=== PATIENT | male | born 1945 | race Caucasian/White ===

== ENCOUNTER → 2017-01-21 | Outpatient (CLI) | payer MEDICARE, BC ==
[~2017-01-21] MED LIST: ALDACTONE25 MG PO; AMARYL; AMARYL2 MG PO; AMOXICILLIN; BP MED; CARAFATE1 G PO; CARVEDILOL25 MG PO; CLOPIDOGREL75 MG PO; COUMADIN PO; COUMADIN5 MG PO; LASIX20 MG PO; LISINOPRIL10 MG PO; LORTAB 7.51 TAB 7.5/ PO; PANTOPRAZOLE SO40 MG PO; PLAVIX PO; POLYTRIM EYE DR10 ML OU; PREDNISONE10 MG; PROMETHAZINE D118 ML; PROTONIX PO; VITAMIN D2000 UNIT PO; ZESTRIL30 MG PO
[2017-01-21 08:55] LABS: BASOPHIL# 0.1 X10e3 (0-0.3); BASOPHIL% 0.8 % (0-2.5); EOSINOPHIL# 0.2 X10e3 (0-0.7); EOSINOPHIL% 2.4 % (0.0-7.0); HEMATOCRIT 47.3 % (38.0-50.0); HEMOGLOBIN 15.2 gm/dL (13.0-16.0); LYMPHOCYTE# 1.7 X10e3 (1.0-3.5); MEAN CELL VOLUME 83.6 FL (83-96); MEAN CORPUSCULAR HGB CONC 32.2 g/dL (30-36); MEAN PLATELET VOLUME 9.1 FL (6.5-11.5); MONOCYTE# 0.7 X10e3 (0-1.0); MONOCYTE% 10.3 % (3.0-12.0); NEUTROPHIL% 60.5 % (40-75); PLATELET COUNT 138 X10e3 (140-420); RED BLOOD COUNT 5.65 X10e (3.90-5.60); RED CELL DISTRIBUTION WIDTH 17.1 % (11.0-15.5); WHITE BLOOD COUNT 6.7 X10e3 (4.0-10.5)
[2017-01-21 08:56] LABS: DIFF IND NO
[2017-01-21 08:57] LABS: URINE APPEARANCE CLEAR; URINE BILIRUBIN NEG (NEG); URINE BLOOD NEG (NEG); URINE COLOR YELLOW; URINE GLUCOSE NEG (NEG); URINE KETONE NEG (NEG); URINE LEUKOCYTE ESTERASE TRACE (NEG); URINE NITRATE NEG (NEG); URINE PROTEIN TRACE (NEG); URINE SPECIFIC GRAVITY 1.016 (1.003-1.035)
[2017-01-21 09:00] LABS: URINE BACTERIA AUWI NEG (NEGATIVE); URINE SQUAMOUS EPITHELIAL CELL NONE SEEN /[HPF]
[2017-01-21 09:02] LABS: URINE SOURCE CLEAN CATCH
[2017-01-21 09:19] LABS: ALBUMIN SERUM 3.5 g/dL (3.5-5.0); BILIRUBIN,TOTAL 0.9 mg/dL (0.2-2.0); BUN/CREATININE RATIO 13.57; CALCIUM SERUM 8.7 mg/dL (8.4-10.2); CREATININE SERUM 1.4 mg/dL (0.6-1.4); GLOM FILT RATE Estimated 53.2 mL/min (>60); POTASSIUM 4.8 mmol/L (3.5-5.1); PROTEIN TOTAL SERUM 7.3 g/dL (6.0-8.3)
== END | disposition home or self-care (01) ==
LOC: CLAB 08:11
PROVIDERS: Internal Medicine Nephrology
DX: I12.9 Hypertensive chronic kidney disease with stage 1 through stage 4 chronic kidney disease, or unspecified chronic kidney disease (principal); N18.3 Chronic kidney disease, stage 3 (moderate)
CPT/HCPCS: 36415; 80053; 81003; 85025

== ENCOUNTER 2017-03-14 12:50 | Emergency (ER) | payer MEDICARE, BC ==
--- NOTE | ~2017-03-14 | CR63 ---
[facility]. [facility] A Service of [facility] & [facility] RADIOLOGY TEXT RESULTS PATIENT: BENJI OCONNOR LOCATION: SED : 46 UNIT #: [id number] AGE: [address]: John Acosta DO SEX: M ORDER DR: [id number] [place] [address] [id number] E MR#: [id number] #: [id number] NAME: BENJI OCONNOR : 1945 SEX: M STUDY DATE/TIME: 03/14/2017 14:31 UNIT: SED ROOM: STUDY DESCRIPTION: CR Chest 2 View Attending Physician: (Res) John Acosta Referring Physician: ([place]) John Acosta Ordering Physician: (Res) John Acosta Primary Care Physician: Kadi Jorgensen M.D. MEDICAL IMAGING REPORT This report is preliminary unless electronic signature is present. EXAM Chest radiograph, PA and lateral, 2 view. DATE OF STUDY 03/14/2017 COMPARISON 10/05/2016 CLINICAL HISTORY Short of air since this morning. FINDINGS There is mild cardiomegaly but no infiltrate, effusion, pneumothorax or suspicious nodule. Dictated by... Regis Bone M.D. THIS IS AN ELECTRONICALLY VERIFIED REPORT Regis Bone M.D. at 03/19/2017 1:25 PM SOFIA/ary TD: 03/14/2017 18:48 JOB #: [id number] MEDICAL IMAGING REPORT Page 1 of 1
--- NOTE | ~2017-03-14 | US85 ---
[facility]. [facility] A Service [facility] RADIOLOGY TEXT RESULTS PATIENT: BENJI OCONNOR LOCATION: SED : 46 UNIT #: [id number] AGE: [address]: John Acosta DO SEX: M ORDER DR: [id number] [place] [id number] E MR#: [id number] Acc #: [id number] NAME: BENJI OCONNOR : 1945 SEX: M STUDY DATE/TIME: 03/14/2017 14:17 UNIT: SED ROOM: STUDY DESCRIPTION: [facility] Attending Physician: John Acosta Referring Physician: John Acosta Ordering Physician: John Acosta Primary Care Physician: Kadi Jorgensen M.D. MEDICAL IMAGING REPORT This report is preliminary unless electronic signature is present. EXAM Right lower extremity venous ultrasound 03/14/2017 HISTORY Right foot swelling for a day. Patient is on Coumadin and Plavix. No history of DVT. TECHNIQUE Venous ultrasound examination of the right lower extremity was performed using grayscale, spectral Doppler and color flow Doppler imaging. FINDINGS The examination is negative. There is no evidence of right lower extremity deep venous thrombus from the groin to the lower calf. Visualized greater saphenous vein is also patent. IMPRESSION Negative examination. No evidence of right lower extremity deep venous thrombosis. Dictated by... Johnathan Salamanca M.D. THIS IS AN ELECTRONICALLY VERIFIED REPORT Johnathan Salamacna M.D. at 03/15/2017 9:22 AM Kyleigh TD: 03/14/2017 18:19 JOB #: [id number] MEDICAL IMAGING REPORT [facility] A Service of [facility] RADIOLOGY TEXT RESULTS PATIENT: BENJI OCONNOR LOCATION: SED : 46 UNIT #: [id number] AGE: [address]: John Acosta DO SEX: M ORDER DR: Page 1 of 1
[~2017-03-14 12:50] MED LIST changes: -AMARYL2 MG PO; -CLOPIDOGREL75 MG PO; -COUMADIN PO; -VITAMIN D2000 UNIT PO; -ZESTRIL30 MG PO
[2017-03-14] MEDS ORDERED: VITAMIN D2000 UNIT PO (12:59)
[2017-03-14] MEDS ORDERED: CLOPIDOGREL75 MG PO (13:00)
[2017-03-14] MEDS ORDERED: LASIX20 MG PO (13:00)
[2017-03-14] MEDS ORDERED: CARVEDILOL25 MG PO (13:00)
[2017-03-14] MEDS ORDERED: AMARYL2 MG PO (13:00)
[2017-03-14] MEDS ORDERED: COUMADIN PO (13:01)
[2017-03-14] MEDS ORDERED: ZESTRIL30 MG PO (13:01)
[2017-03-14] MEDS ORDERED: PROTONIX PO (13:01)
== END 2017-03-14 15:15 | disposition home or self-care (01) ==
LOC: SED 12:50
DX: M79.89 Other specified soft tissue disorders (principal); E11.9 Type 2 diabetes mellitus without complications; I10 Essential (primary) hypertension; I48.91 Unspecified atrial fibrillation; Z79.899 Other long term (current) drug therapy
CPT/HCPCS: 71020; 93971; 99284

== ENCOUNTER 2017-04-01 17:23 | Inpatient (IN) | payer MEDICARE, BC ==
--- NOTE | ~2017-04-01 | HP ---
Unit #: [id number] #: [id number] Patient: BENJI OCONNOR [id number] [place], [place] [address] [id number] I MR#: [id number] NAME: BENJI OCONNOR ROOM: 550 Age: 72 Sex: M Admission Date: 04/02/2017 : 1945 Attending Physician: Lety Rodriguez M.D. Primary Care Physician: Kadi Jorgensen M.D. HISTORY AND PHYSICAL CHIEF COMPLAINT Near syncope. HISTORY This pleasant 72-year-old male with CAD, history of atrial fibrillation, hypertension, AODM, is admitted for near syncope. The patient states that he was well until three weeks ago when he began to feel exhausted. Yesterday, while driving, he experienced a near syncopal episode, and pulled off to the side of the road. This was associated with chest pressure and shortness of breath lasting three to four minutes. At 5:00 last evening while at rest, he experienced a similar episode of near syncope, chest pressure, shortness of breath lasting a few minutes. He, therefore, presented to this emergency department at about 5:20 p.m. last evening. Vital signs were normal. EKG shows atrial fibrillation. Labs are notable for a mildly acute on chronic kidney disease, and mild thrombocytopenia which was recently noted by his primary care physician's office. PAST MEDICAL HISTORY 1. CAD, status post CABG two years ago and status post PCI and stent about six months to a year ago at [facility]. The patient was found to be in atrial fibrillation and hospitalized at [facility] over the past year and that was when the stents were placed. He is anticoagulated. 2. AODM x2 years. 3. Hypertension. 4. GERD. 5. Peptic ulcer disease with perforated duodenal ulcer 01/2013 requiring exploratory lap. 6. Mild chronic kidney disease, seen by Dr. Borja. 7. Recent diagnosis of thrombocytopenia. 8. Surgery for an arm fracture. 9. Hand surgery. 10. Exploratory lap. 11. CABG. ALLERGIES No known drug allergies. HOME MEDICATIONS 1. Coreg 25 mg b.i.d. 2. Plavix 75 mg q. p.m. 3. Lasix 40 mg daily. Unit #: [id number] #: [id number] Patient: BENJI OCONNOR 4. Amaryl 2 mg daily. 5. Lisinopril 30 mg q. h.s. 6. Protonix 40 mg b.i.d. 7. Coumadin 3 mg daily except for 1.5 mg on Wednesdays and Sundays. FAMILY HISTORY CAD and atrial fibrillation. SOCIAL HISTORY The patient lives with his . He stopped smoking two years ago, does not drink alcohol. REVIEW OF SYSTEMS Notable for near syncope, chest pain, shortness of breath, atrial fibrillation, CAD, hypertension, AODM, peptic ulcer disease, thrombocytopenia, above mentioned surgeries. Other systems were reviewed and are otherwise negative. PHYSICAL EXAMINATION GENERAL APPEARANCE: Pleasant, mildly obese 72-year-old male, currently in no acute distress. VITAL SIGNS: Temperature 97.8, pulse 71, respirations 18, blood pressure 136/74, O2 saturation 97% on room air. HEENT: Eyes PERRLA. Extraocular muscles are intact. Pharynx is benign. NECK: Supple without adenopathy or thyromegaly. CHEST: A few crackles at the bases. CARDIAC: Irregular, irregular S1 and S2 with a soft systolic murmur. ABDOMEN: Bowel sounds are present. Mild mid abdominal discomfort. No rebound, no guarding. Well-healed midline scar noted. No hepatosplenomegaly or masses. EXTREMITIES: Without edema. Pedal pulses are diminished. NEUROLOGIC: The patient is awake, alert, oriented. Cranial nerves are intact. He has equal strength throughout. DIAGNOSTIC STUDIES LABORATORY: Admission labs - hematocrit 49.5, normal white count. Platelet count is 105. Normal MCV. SMA-12 - BUN 30, creatinine 1.7, up from a BUN of 19, creatinine of 1.4 01/2017. Cardiac markers x2 negative. Urinalysis - trace leukocyte esterase without significant white or red cells. IMAGING: Head CT - sinus chest. Chest x-ray - cardiomegaly. CARDIOVASCULAR: EKG - atrial fibrillation with PVC, rate 75. Left axis deviation. Poor R wave progression. Intraventricular conduction delay. ASSESSMENT 1. Near syncope x2 with shortness of breath and chest pressure at rest: The patient does have a history of CAD and either chronic or paroxysmal atrial fibrillation. He presents in atrial fibrillation. 2. Feeling exhausted for the past three weeks. Unit #: [id number] #: [id number] Patient: BENJI OCONNOR 3. Atrial fibrillation with history of chronic versus paroxysmal atrial fibrillation. The patient is anticoagulated. 4. Coronary artery disease, status post coronary artery bypass graft and later percutaneous coronary intervention and stents. 5. Adult onset diabetes mellitus. 6. Chronic kidney disease, a little worse. 7. Hypertension. 8. Peptic ulcer disease. 9. Anticoagulated. 10. Thrombocytopenia. PLANS 1. Gentle IV fluids. 2. Old records. 3. Decrease lisinopril and Lasix for now. 4. Check coags. 5. Check orthostatics. 6. Repeat labs in the morning. 7. Ask cardiology to see. Dictated by Tamiko Perera/sharona TD: 04/02/2017 05:24 JOB #: [id number] HISTORY AND PHYSICAL Page 1 of 1 X Lety Rodriguez MD X HISTORY AND PHYSICAL
--- NOTE | ~2017-04-01 | EKG ---
PATIENT: BENJI OCONNOR UNIT #: [id number] Ventricular Rate: 63 BPM Atrial Rate: 441 BPM QRS Duration: 130 ms Q-T Interval: 470 ms QTC Calculation(Bezet): 480 ms Calculated R Martinez: -70 degrees Calculated T Martinez: -54 degrees Diagnosis Line: Atrial fibrillation with premature ventricular or Diagnosis Line: aberrantly conducted complexes Diagnosis Line: Left axis deviation Diagnosis Line: Non-specific intra-ventricular conduction block Diagnosis Line: Abnormal ECG Diagnosis Line: When compared with ECG of 02-APR-2017 12:55, Diagnosis Line: No significant change was found Diagnosis Line: Confirmed by VONDA SHI MD ([id number]) on Diagnosis Line: 04/05/2017 9:50:15 AM INTERPRETING : MARIELENA
--- NOTE | ~2017-04-01 | TH ---
Unit #: [id number] #: [id number] Patient: BENJI OCONNOR [id number] [address] [address] [id number] I MR#: [id number] NAME: BENJI OCONNOR : 1945 SEX: M STUDY DATE/TIME: 04/02/2017 UNIT: [id number] ROOM: [facility] STUDY DESCRIPTION: Attending Physician: Oh Friedman M.D. Primary Care Physician: Kadi Jorgensen M.D. CARDIOLOGY REPORT EXAM Nuclear study. DESCRIPTION OF PROCEDURE This 72-year-old patient received 0.4 mg of Lexiscan intravenously, followed by 27.8 mCi of technetium-99m Cardiolite and images were obtained according to a standard SPECT protocol. For rest images, 10.14 mCi of Cardiolite was injected. Images were reviewed in both phases. FINDINGS Overall study quality is excellent. LV cavity size is normal in both images. There is no lung activity. RV is normal. Rotating raw data showed no significant artifact, soft tissue attenuation, or GI uptake. Review of the SPECT images showed severe decrease in the radiotracer concentration in a large inferolateral and apical segment in the stress images. In the rest images, this defect is fixed. Gated images showed severe hypokinesis of the inferolateral and apical wall of LV with estimated LV ejection fraction 29%. IMPRESSION 1. Myocardial perfusion imaging is abnormal. 2. No evidence of stress-induced ischemia. 3. High likelihood of a large inferolateral and apical infarct. 4. Severe hypokinesis of the inferolateral and apical wall of the left ventricle with estimated left ventricular ejection fraction of 29%. 5. Normal left ventricle dimensions. 1. Dictated by... Tamiko Morin/chau TD: 04/02/2017 17:11 JOB #: [id number] Unit #: [id number] #: [id number] Patient: BENJI OCONNOR CARDIOLOGY REPORT Page 1 of 1 X Maninder Espinoza MD CARDIOLOGY REPORT
--- NOTE | ~2017-04-01 | EKG ---
PATIENT: BENJI OCONNOR UNIT #: [id number] Ventricular Rate: 75 BPM Atrial Rate: 75 BPM P-R Interval: 352 ms QRS Duration: 132 ms Q-T Interval: 458 ms QTC Calculation(Bezet): 511 ms P [place]: 82 degrees Calculated R [place]: -66 degrees Calculated T [place]: -3 degrees Diagnosis Line: Atrial fibrillation with occasional and Diagnosis Line: consecutive Premature ventricular complexes Diagnosis Line: Left axis deviation Diagnosis Line: Left anterior fascicular block Diagnosis Line: Non-specific intra-ventricular conduction block Diagnosis Line: Poor R wave progression questionable lead position Diagnosis Line: or body habitus Diagnosis Line: Abnormal ECG Diagnosis Line: When compared with ECG of 18-DEC-2014 08:50, Diagnosis Line: Rhythm now attial fibrillation Diagnosis Line: QRS duration has increased Diagnosis Line: Questionable change in initial forces of Anterior Diagnosis Line: leads Diagnosis Line: Diagnosis Line: Confirmed by VONDA SHI MD ([id number]) on Diagnosis Line: 04/05/2017 9:41:53 AM INTERPRETING PERI PEGUERO
--- NOTE | ~2017-04-01 | CO ---
Unit #: [id number] #: [id number] Patient: BENJI LAUGHLIN [id number] [place] [address] [facility]. [place], [place] [address] [id number] I MR#: [id number] NAME: BENJI LAUGHLIN ROOM: 550 Age: 72 Sex: M Admission Date: 04/02/2017 : 1945 Attending Physician: Oh Friedman M.D. Primary Care Physician: Kadi Jorgensen M.D. Consultation Date: 04/02/2017 CONSULTATION REPORT REASON FOR CONSULTATION Near syncope and chest pressure. HISTORY OF PRESENT ILLNESS This is a 72-year-old white male with history of having ischemic cardiomyopathy, had angioplasty and stent back in 2014, also was found at that time to have an ejection fraction of 30%. The patient was also told he had WPW at the age of 28, but he said most recently his commissioned defence force officer said they have not found any indication of that condition. He had bradycardia at some time. After event monitor, they did feel that he did not need a pacemaker. He is in chronic atrial fibrillation. He is a diabetic, chronic kidney disease, hypertension, and has been newly diagnosed to have thrombocytopenia, COPD, obstructive sleep apnea. He is on Coumadin for his atrial fibrillation. Back in 2014, he had a subclavian artery revascularization at [facility]. The patient states that on yesterday morning when he got up, he was feeling fine. He went out to lunch; on the way back, he was driving and he got a sudden onset of weakness and lightheadedness and thought he was going to pass out. He denies any diaphoresis. Did not have any palpitations. He said it persisted. He pulled out the car over, his helped him around to the passenger side and she drove home. He said during that period which lasted about 3 to 5 minutes, he felt short of breath and had some substernal chest pressure at the same time. After the symptoms eased off, he said he continued to feel weak throughout the day. He has had another episode, where he was sitting in a chair, watching television and he started feeling lightheaded and weak and thought he was going to pass out. He felt shortness of breath and substernal chest pain. He said he laid down and he never did really pass out. He had his bring him to the ER for further evaluation. He denies any recent cough, fever, or chills. He denies any radiation of the chest pressure up into his neck, bilateral jaws, shoulders, arms, or elbow. By the time he came to the emergency room, the symptoms had eased off. In the emergency room, the patient's blood pressure was 136/74, heart rate was 71, respirations 18, temperature 97.8, O2 saturation was 97% on room air. CT of his head did not show anything acute. EKG shows atrial fibrillation and atrial flutter with a ventricular rate of 75 beats per minute. The patient's initial labs; his BUN 30, creatinine 1.7. Initial cardiac enzymes are negative. D-dimer is 457. Hemoglobin is 15.9, platelets 105. The patient's chest x-ray did show cardiomegaly. The patient was admitted for further evaluation and management. Cardiology has been consulted to assist with evaluation and management. The patient does report that he follows Dr. Kristina Bee, Cardiology, at [facility]. Unit #: [id number] #: [id number] Patient: BENJI LAUGHLIN PAST MEDICAL HISTORY 1. In 2014, he had a cardiac cath, it showed according to information 30% in the left main stenosis; 40% diffuse disease of the LAD, circumflex; chronic occlusion in the mid segment; RCA 50% to 60% with 50% to 60% distal stenosis of the PDA; and diffuse stenosis of 80% to 90% distally. The patient states that he did have a PCI and stent placed x1. Details are unavailable of the PCI. 2. History of atrial fibrillation with slow response on event monitor and he did not require a pacemaker. Chronic atrial fibrillation, on Coumadin. Reports failed attempts at cardioversion. 3. COPD, reformed smoker. 4. Diabetes mellitus, type 2. 5. Hypertension. 6. Hyperlipidemia. 7. Chronic kidney disease, newly diagnosed with thrombocytopenia. 8. Obstructive sleep apnea, uses a CPAP. 9. Peptic ulcer disease, history of perforated duodenal ulcer and required surgery in 2012. 10. 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 11. 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 12. History of nonsustained ventricular tachycardia. 13. Reformed smoker. PAST SURGICAL HISTORY 1. In 03/2015, had subclavian artery revascularization for subclavian steal syndrome. In 08/2016, had open left brachial artery access. Left cervical carotid and left upper extremity angiogram with angioplasty of his subclavian artery anastomosis with angioplasty balloon that was done by Dr. Yamila Foster at [facility]. 2. Status post PCI and stent in 2014. Details are unavailable. 3. Peptic ulcer disease, had a perforated duodenal ulcer in 2012 that required surgery. 4. Fractured arm and hand repair. HOME MEDICATIONS Carvedilol 25 mg p.o. b.i.d.; Plavix 75 mg p.o. daily; Lasix 40 mg p.o. daily; Amaryl 2 mg p.o. daily; lisinopril 30 mg p.o. daily; Protonix 40 mg p.o. b.i.d.; Coumadin 3 mg on Friday, Friday, and Friday and 1.5 mg on Friday and Friday. ALLERGIES No known drug allergies. SOCIAL HISTORY The patient lives with his spouse. He quit smoking two years ago. No alcohol or illicit drug abuse. FAMILY HISTORY There is coronary artery disease in his immediate family members, details are unavailable; and atrial fibrillation. REVIEW OF SYSTEMS See details in HPI. Unit #: [id number] #: [id number] Patient: BENJI LAUGHLIN PHYSICAL EXAMINATION GENERAL: Mr. Laughlin is a 72-year-old white male, in no acute respiratory distress. He is awake, alert, and oriented. VITAL SIGNS: Blood pressure is 139/70, lying blood pressure; heart rate is 58; blood pressure sitting is 135/69 with heart rate 60; and blood pressure standing 133/51 with heart rate 52. Afebrile. O2 saturations 97% on room air. NECK: Trachea midline. No thyromegaly or lymphadenopathy. Normal carotid upstrokes. No jugular venous distention. HEART: S1 and S2. Irregular rate and rhythm. Soft systolic murmur in the left sternal border. LUNGS: Slight diminished, otherwise clear. ABDOMEN: Obese, soft, and nontender. EXTREMITIES: Pedal pulses are palpable, but faint. No pedal edema. DIAGNOSTIC STUDIES LABORATORY RESULTS: Glucose is 138, BUN 26, creatinine 1.6, eGFR is 42.7, sodium 139, potassium 4.5, chloride 105, CO2 of 24, calcium is 8.4, total protein 7.0, albumin 3.7, bilirubin total 1.3, AST is 26, ALT 19, and alkaline phosphatase is 88. Amylase is 30, lipase is 38. WBCs 5.8, hemoglobin 15.8, hematocrit 48.1, and platelets are 94. Initial cardiac enzymes; CK-MB is 1.9 with troponin less than 0.05, CK-MB is 2.0 with troponin less than 0.05. D-dimer is 457. INR is 1.7. Urinalysis shows trace of leukocyte esterase, 1.0 urobilinogen. IMAGING STUDIES: Chest x-ray shows cardiomegaly, otherwise nothing acute. CT of the head without contrast shows nothing acute. CARDIOVASCULAR STUDIES: EKG shows atrial flutter atrial fibrillation with ventricular rate 75 beats per minute, left axis deviation, nonspecific intraventricular block, septal Q-waves. IMPRESSION 1. Near syncope, questionable etiology. 2. Chest pain and shortness of breath with near syncopal episode. 3. History of coronary artery disease. Reports had a previous percutaneous coronary intervention and stent in around 2014. 4. Permanent atrial fibrillation, on Coumadin. 5. Chronic kidney disease. 6. History of chronic obstructive pulmonary disease and obstructive sleep apnea. 7. Diabetes mellitus, type 2. 8. Hypertension. 9. Hyperlipidemia. 10. Thrombocytopenia. 11. History of peptic ulcer disease in 2012, had a perforated duodenal ulcer. 12. Reformed smoker. PLAN 1. Cardiology consult to assist with evaluation and management. Continue to monitor cardiac enzymes and EKG since it has been almost 2 years since he had any ischemic heart disease workup. With his spells, he could possibly be equivocal to unstable angina. So, we will proceed with a Lexiscan Cardiolite stress test to further evaluate. 2. I would obtain a 2D echo to reassess his LV function and valves. 3. I got some information from [facility], but we will try to get the Unit #: [id number] #: [id number] Patient: BENJI LAUGHLIN cardiac cath report for final details and the location of the stents. 4. Continue to monitor orthostatic vital signs. So far, his first set is unremarkable for any orthostasis. 5. Right now, he is on carvedilol 25 mg p.o. b.i.d. We will decrease that down to 6.25 mg p.o. b.i.d. because his heart rate is in the 50s at times. 6. Obtain a fasting lipid profile and TSH and evaluate. 7. If the patient's stress test and echo are unremarkable, he may need some type of event monitor. 8. Further recommendations pending per Dr. Torres. Thank you very much for allowing us to assist in the care. Dictated by... Keira Bee A.P.R.N. for Tamiko Santoyo/brianl TD: 04/02/2017 16:41 JOB #: [id number] CC: Kadi Jorgensen M.D. CONSULTATION REPORT Page 1 of 1 X Keira Bee APRN X CONSULTATION REPORT
--- NOTE | ~2017-04-01 | CT71 ---
[facility] A Service [facility] RADIOLOGY TEXT RESULTS PATIENT: BENJI OCONNOR LOCATION: [facility] 550-01 : [birth year] UNIT #: [id number] AGE: [address]: Oh Friedman MD SEX: M ORDER DR: [id number] [place] [id number] [facility]. [place], [place] [address] [id number] I MR#: [id number] Acc #: [id number] NAME: BENJI OCONNOR : 1945 SEX: M STUDY DATE/TIME: 04/01/2017 22:05 UNIT: [facility] ROOM: [facility] STUDY DESCRIPTION: CT Head Wo Contrast Attending Physician: Oh Friedman M.D. Ordering Physician: Tamika Orona M.D. Primary Care Physician: Kadi Jorgensen M.D. MEDICAL IMAGING REPORT This report is preliminary unless electronic signature is present EXAM CT of the head without contrast INDICATION Syncopal episodes. Patient has felt as if his head was going to explode on and off for [address] images were obtained from the vertex of the skull to the skull base. No intravenous contrast material was administered. This CT exam was performed with one or more of the following radiation dose reduction techniques: automatic exposure control, adjustment of mA and/or kV according to patient size, and iterative reconstruction. FINDINGS No acute intracranial hemorrhage is identified. Patient has had some atrophy in keeping with the age of 72. No focal areas of decreased attenuation are seen. There is no midline shift or mass effect. There is some mucosal thickening identified within the ethmoid sinuses with significant opacification of the right sphenoid sinus noted. Mastoid air cells appear clear. No aggressive osseous abnormalities are seen. IMPRESSION 1. No acute intracranial process identified. Specifically, there is no evidence acute hemorrhage, mass lesion, or acute infarct. 2. Sinus inflammatory changes involving the right sphenoid sinus not significantly changed when compared to December of 2014. Dictated by... Pilar Tracey M.D. [facility] A Service of [facility] RADIOLOGY TEXT RESULTS PATIENT: BENJI OCONNOR LOCATION: [facility] 550-01 : [birth year] UNIT #: [id number] AGE: [address]: Oh Friedman MD SEX: M ORDER DR: THIS IS AN ELECTRONICALLY VERIFIED REPORT Pilar Tracey M.D. at 04/02/2017 11:00 AM AFF/messi TD: 04/02/2017 08:34 JOB #: [id number] MEDICAL IMAGING REPORT Page 1 of 1 COPY
--- NOTE | ~2017-04-01 | CR72 ---
[facility] A Service of [facility] / [facility] RADIOLOGY TEXT RESULTS PATIENT: BENJI OCONNOR LOCATION: [facility] 550-01 : 46 UNIT #: [id number] AGE: [address]: Oh Friedman MD SEX: M ORDER DR: [id number] [facility] [address], [place] [address] [id number] MR#: [id number] #: [id number] NAME: BENJI OCONNOR : 1945 SEX: M STUDY DATE/TIME: 04/01/2017 21:51 UNIT: [facility] ROOM: [facility] STUDY DESCRIPTION: CR Chest Single View Portable Attending Physician: Oh Friedman M.D. Ordering Physician: Tamika Orona M.D. Primary Care Physician: Kadi Jorgensen M.D. MEDICAL IMAGING REPORT This report is preliminary unless electronic signature is present EXAM Portable chest INDICATION Shortness of air today PROCEDURE Frontal view of the chest COMPARISON 03/14/2017 FINDINGS Stable cardiomegaly. No dense consolidation. No pleural fluid. No pneumothorax. IMPRESSION No active process. Cardiomegaly. Dictated by... Jb Bunch M.D. THIS IS AN ELECTRONICALLY VERIFIED REPORT Jb Bunch M.D. at 04/02/2017 10:13 PM Frankie TD: 04/02/2017 08:00 JOB #: [id number] MEDICAL IMAGING REPORT Page 1 of 1 COPY
--- NOTE | ~2017-04-01 | ST ---
Unit #: [id number] #: [id number] Patient: BENJI OCONNOR [id number] [facility] [place] [id number] [facility]. [place], [place] [address] [id number] I MR#: [id number] NAME: BENJI OCONNOR : 1945 SEX: M STUDY DATE/TIME: 04/02/2017 UNIT: [id number] ROOM: [facility] STUDY DESCRIPTION: Attending Physician: Oh Friedman M.D. Primary Care Physician: Kadi Jorgensen M.D. CARDIOLOGY REPORT EXAM Lexiscan Cardiolite stress test. FINDINGS Baseline EKG: Atrial fibrillation, atrial flutter with ventricular rate 61 beats per minute. Q waves noted in anteroseptal leads. Low voltage in lateral leads. Frequent premature ventricular complexes. Nonspecific intraventricular conduction delay. PROCEDURE Lexiscan is a four minute test with Lexiscan being injected within the first minute followed by Cardiolite. Next, EKG during the test is equivocal to baseline and continued to show occasional to frequent premature ventricular complexes. No nonsustained ventricular tachycardia. Maximum heart rate response was 77 beats per minute with a maximum blood pressure response of 128/76 mmHg. The patient had no complaints of chest pain, palpitations, or dizziness. Had increased shortness of breath and fatigueness which resolved in recovery phase. Cardiolite was injected after Lexiscan within the first minute of the test. Radionuclide tests pending. Please correlate with nuclear images. Dictated by... Keira Bee A.P.R.N. for Tamiko Santoyo/preethi TD: 04/02/2017 15:46 JOB #: [id number] CARDIOLOGY REPORT Page 1 of 1 X Keira Bee APRN CARDIOLOGY REPORT
--- NOTE | ~2017-04-01 | DS ---
Unit #: [id number] #: [id number] Patient: BENJI OCONNOR [id number] [facility]. [place], [place] [address] [id number] I MR#: [id number] NAME: BENJI OCONNOR ROOM: 550 Age: 72 Sex: M Admission Date: 04/02/2017 : 1945 Discharge Date: 04/03/2017 Attending Physician: Oh Friedman M.D. Primary Care Physician: Kadi Jorgensen M.D. DISCHARGE SUMMARY DISCHARGE DIAGNOSES 1. New syncope. 2. Bradycardia. 3. Chronic systolic heart failure. 4. Ischemic cardiomyopathy. 5. Chronic kidney disease. 6. Type 2 diabetes. 7. Atrial fibrillation. HOSPITAL COURSE The patient is a 72-year-old male who presented to [facility] after a near syncopal event. Patient states that symptoms have been progressive over the course of three weeks. The day prior to presentation, he progressed to the point where he had a near syncopal episode and had to pull off the road. He said he had experienced some chest pressure, shortness of breath and it lasted three to four minutes. He states that later that evening he had a similar episode and came to the emergency room about 20 minutes later. Patient's EKG showed atrial fibrillation and his vital signs were normal at that time. Cardiology consult was obtained and incidentally the patient had a heart rate in the mid 30s on the second day of admission. Cardiology did a 2D echo which revealed severe global left ventricular hypokinesis and an estimated ejection fraction of 25% to 30%. The patient also underwent a stress test which was noted to be normal. The patient has opted to have any and all further testing under the guidance of his primary global account executive. Therefore at this time, the patient is being discharged home with a LifeVest and has had reduction in his beta lois given his heart rate in the 30s. The patient should follow up with his global account executive, Dr. Chin, at his earliest available opportunity. DISCHARGE MEDICATIONS 1. Coumadin 3 mg Friday, Friday, , Friday and 1.5 mg Friday, Friday. 2. Coreg 6.25 mg p.o. b.i.d. 3. Lasix 20 mg p.o. daily. 4. Lisinopril 20 mg daily. 5. Plavix 75 mg daily. 6. Protonix 40 mg p.o. b.i.d. 7. Amaryl 2 mg p.o. daily. FOLLOWUP As mentioned above, the patient should followup with his primary global account executive, Dr. Chin, at his soonest opportunity. Unit #: [id number] #: [id number] Patient: BENJI OCONNOR Dictated by... Oh Friedman M.D. JADEN/preethi TD: 04/05/2017 14:36 JOB #: [id number] DISCHARGE SUMMARY Page 1 of 1 X Oh Friedman MD X DISCHARGE SUMMARY
[~2017-04-01 17:23] MED LIST changes: +AMARYL2 MG PO; +CLOPIDOGREL75 MG PO; +COUMADIN PO; +VITAMIN D2000 UNIT PO; +ZESTRIL30 MG PO
[2017-04-01 19:43] LABS: BASOPHIL# 0.1 X10e3 (0-0.3); BASOPHIL% 0.8 % (0-2.5); EOSINOPHIL# 0.1 X10e3 (0-0.7); EOSINOPHIL% 1.9 % (0.0-7.0); HEMATOCRIT 49.5 % (38.0-50.0); HEMOGLOBIN 15.9 gm/dL (13.0-16.0); LYMPHOCYTE# 1.8 X10e3 (1.0-3.5); LYMPHOCYTE% 24.6 % (17.0-45.0); MEAN CELL VOLUME 83.1 FL (83-96); MEAN CORPUSCULAR HEMOGLOBIN 26.6 PG (28-34); MEAN PLATELET VOLUME 9.8 FL (6.5-11.5); MONOCYTE# 0.8 X10e3 (0-1.0); MONOCYTE% 10.1 % (3.0-12.0); NEUTROPHIL# 4.7 X10e3 (1.5-7.1); NEUTROPHIL% 62.6 % (40-75); PLATELET COUNT 105 X10e3 (140-420); RED BLOOD COUNT 5.96 X10e (3.90-5.60); WHITE BLOOD COUNT 7.5 X10e3 (4.0-10.5)
[2017-04-01 19:44] LABS: DIFF IND NO
[2017-04-01 20:02] LABS: ALBUMIN SERUM 3.7 g/dL (3.5-5.0); BILIRUBIN, DIRECT 0.3 mg/dL (0.0-0.2); BILIRUBIN,TOTAL 1.3 mg/dL (0.2-2.0); BUN/CREATININE RATIO 17.64; CALCIUM SERUM 8.8 mg/dL (8.4-10.2); CREATININE SERUM 1.7 mg/dL (0.6-1.4); GLOM FILT RATE Estimated 39.7 mL/min (>60)
[2017-04-01 20:25] LABS: POC - CKMB 1.9 ng/mL (0.0-7.9); POC - TROPONIN <0.05 ng/mL (<=0.05)
[2017-04-01 21:29] LABS: POC - TROPONIN <0.05 ng/mL (<=0.05)
[2017-04-01] MEDS ORDERED: COUMADIN PO (21:57)
[2017-04-01 23:49] LABS: URINE SOURCE CLEAN CATCH
[2017-04-01 23:54] LABS: URINE APPEARANCE CLEAR; URINE BILIRUBIN NEG (NEG); URINE BLOOD NEG (NEG); URINE COLOR YELLOW; URINE GLUCOSE NEG (NEG); URINE KETONE NEG (NEG); URINE LEUKOCYTE ESTERASE TRACE (NEG); URINE NITRATE NEG (NEG); URINE PH 5.5 (5-8); URINE PROTEIN NEG (NEG); URINE SPECIFIC GRAVITY 1.017 (1.003-1.035)
[2017-04-01 23:57] LABS: U HYALINE CASTS AUWI 0-2 /[LPF]; URBCS1 AUWI 0-2 /[HPF] (0-2); URINE BACTERIA AUWI NEG (NEGATIVE); URINE SQUAMOUS EPITHELIAL CELL NONE SEEN /[HPF]; UWBCS1 AUWI 0-2 (0-5)
[2017-04-02 00:01] LABS: CULTURE INDICATED? NO
[2017-04-02 08:00] LABS: BASOPHIL% 0.8 % (0-2.5); EOSINOPHIL# 0.1 X10e3 (0-0.7); EOSINOPHIL% 1.6 % (0.0-7.0); HEMATOCRIT 48.1 % (38.0-50.0); HEMOGLOBIN 15.1 gm/dL (13.0-16.0); INR 1.7; LYMPHOCYTE# 1.6 X10e3 (1.0-3.5); MEAN CORPUSCULAR HEMOGLOBIN 26.4 PG (28-34); MEAN CORPUSCULAR HGB CONC 31.5 g/dL (30-36); MEAN PLATELET VOLUME 9.8 FL (6.5-11.5); MONOCYTE# 0.6 X10e3 (0-1.0); MONOCYTE% 10.9 % (3.0-12.0); NEUTROPHIL# 3.5 X10e3 (1.5-7.1); NEUTROPHIL% 59.7 % (40-75); PROTHROMBIN TIME (PATIENT) 18.4 SECONDS (9.6-11.5); RED BLOOD COUNT 5.72 X10e (3.90-5.60); RED CELL DISTRIBUTION WIDTH 16.9 % (11.0-15.5); WHITE BLOOD COUNT 5.8 X10e3 (4.0-10.5)
[2017-04-02 08:16] LABS: BUN/CREATININE RATIO 16.25; CALCIUM SERUM 8.4 mg/dL (8.4-10.2); CREATININE SERUM 1.6 mg/dL (0.6-1.4); GLOM FILT RATE Estimated 42.7 mL/min (>60); POTASSIUM 4.5 mmol/L (3.5-5.1)
[2017-04-02 08:32] LABS: DIFF IND YES; PLATELET COUNT 94 X10e3 (140-420)
[2017-04-02 08:34] LABS: %MB 4.3 % (0.0-4.0); MB 3.6 ng/ml
[2017-04-02 09:43] LABS: PLATELET ESTIMATE DECREASED (NORMAL)
[2017-04-02 09:44] LABS: ANISOCYTOSIS SL
[2017-04-02 10:45] LABS: CHOLESTEROL 128 mg/dL (0-200); HDL CHOLESTEROL 27 mg/dL (29-75); LDL CHOLESTEROL 79 mg/dL (-130); LDL/HDL RATIO 3 RATIO (0-4); TRIGLYCERIDES 112 mg/dL (10-160)
[2017-04-03 04:21] LABS: INR 1.7; PROTHROMBIN TIME (PATIENT) 18.2 SECONDS (9.6-11.5)
[2017-04-03 04:38] LABS: BUN/CREATININE RATIO 19.23; CALCIUM SERUM 8.3 mg/dL (8.4-10.2); CREATININE SERUM 1.3 mg/dL (0.6-1.4); GLOM FILT RATE Estimated 54.9 mL/min (>60); MAGNESIUM 2.1 mg/dL (1.6-3.0); POTASSIUM 4.1 mmol/L (3.5-5.1)
== END 2017-04-03 18:32 | disposition home or self-care (01) | DRG 309 ==
LOC: CED 17:23 → CEDOF 04-02 02:14 → CED 04-02 02:14 → C5B 04-02 02:30 → CEDOF 04-02 02:30 → C5B 04-02 05:19 → CEDOF 04-02 05:19 → C5B 04-02 07:33
PROVIDERS: Internal Medicine; Internal Medicine Cardiovascular Disease; Nurse Practitioner
PROC: B24BYZZ Ultrasonography of Heart with Aorta using Other Contrast (ICD-10-PCS; principal; 2017-04-02)
DX: I48.2 Chronic atrial fibrillation (principal); I13.0 Hypertensive heart and chronic kidney disease with heart failure and stage 1 through stage 4 chronic kidney disease, or unspecified chronic kidney disease; E11.22 Type 2 diabetes mellitus with diabetic chronic kidney disease; D69.6 Thrombocytopenia, unspecified; I25.5 Ischemic cardiomyopathy; I50.22 Chronic systolic (congestive) heart failure; I25.10 Atherosclerotic heart disease of native coronary artery without angina pectoris; R55 Syncope and collapse; Z79.01 Long term (current) use of anticoagulants; Z95.1 Presence of aortocoronary bypass graft; K21.9 Gastro-esophageal reflux disease without esophagitis; Z87.11 Personal history of peptic ulcer disease; Z87.891 Personal history of nicotine dependence; Z95.5 Presence of coronary angioplasty implant and graft; G47.33 Obstructive sleep apnea (adult) (pediatric); R07.9 Chest pain, unspecified; N18.9 Chronic kidney disease, unspecified; R00.1 Bradycardia, unspecified
CPT/HCPCS: 36415; 70450; 71010; 78452; 80048; 80061; 80076; 81003; 82550; 82553; 82947; 83735; 84443; 84484; 85025; 85379; 85610; 93005; 93017; 93306; 94760; 96361; 96365; 99285; A9500; J2785